=== PATIENT | male | born 1965 | race Caucasian/White ===

== ENCOUNTER → 2016-03-27 | Outpatient (CLI) | payer BC ==
[~2016-03-27] MED LIST: ALLEGRA ALLERG180 MG PO; AMOXICILLIN 8751 TAB PO; LAMICTAL 100MG100 MG PO; NIACIN1000 MG PO; NORCO 325 MG-51 TAB PO; PROAIR HFA0.09 MG/AC IH; SINGULAIR 110 MG/TAB PO; ZITHROMAX 250M250 MG PO
== END ==
LOC: BHSO 09:53
DX: F33.1 Major depressive disorder, recurrent, moderate (principal)

== ENCOUNTER → 2016-04-17 | Outpatient (CLI) | payer BC | LOC: BHSO 07:59 | DX: F33.1 Major depressive disorder, recurrent, moderate (principal) ==

== ENCOUNTER → 2016-05-11 | Outpatient (CLI) | payer BC | LOC: BHSO 09:03 | DX: F33.2 Major depressive disorder, recurrent severe without psychotic features (principal) ==

== ENCOUNTER → 2016-06-20 | Outpatient (CLI) | payer BC | LOC: BHSO 10:58 | DX: F33.1 Major depressive disorder, recurrent, moderate (principal) ==

== ENCOUNTER → 2016-10-02 | Outpatient (CLI) | payer BC | LOC: BHSO 08:59 | DX: F33.1 Major depressive disorder, recurrent, moderate (principal) ==

== ENCOUNTER → 2016-11-07 | Outpatient (CLI) | payer BC | LOC: BHSO 08:57 | DX: F41.1 Generalized anxiety disorder (principal) ==

== ENCOUNTER → 2016-12-03 | Outpatient (CLI) | payer BC | LOC: BHSO 14:59 | DX: F41.1 Generalized anxiety disorder (principal) ==

== ENCOUNTER → 2017-01-01 | Outpatient (CLI) | payer BC | LOC: BHSO 09:00 | DX: F33.0 Major depressive disorder, recurrent, mild (principal) ==

== ENCOUNTER → 2017-01-16 | Outpatient (CLI) | payer BC ==
[~2017-01-16] VITALS: Ht 177.8 cm; Wt 64.9 kg
== END ==
LOC: SUN.CLI 09:21
DX: Z43.2 Encounter for attention to ileostomy (principal); Z87.738 Personal history of other specified (corrected) congenital malformations of digestive system; Z71.89 Other specified counseling; R19.7 Diarrhea, unspecified; Z78.9 Other specified health status

== ENCOUNTER → 2017-02-18 | Outpatient (CLI) | payer BC | LOC: BHSO 08:56 | DX: F41.1 Generalized anxiety disorder (principal) ==

== ENCOUNTER → 2017-04-02 | Outpatient (CLI) | payer BC | LOC: BHSO 15:55 | DX: F33.1 Major depressive disorder, recurrent, moderate (principal) ==

== ENCOUNTER → 2017-05-16 | Outpatient (CLI) | payer BC | LOC: BHSO 08:59 | DX: F33.1 Major depressive disorder, recurrent, moderate (principal) ==

== ENCOUNTER 2017-06-13 06:42 | Emergency (ER) | payer BC ==
[~2017-06-13] VITALS: Ht 177.8 cm; Wt 68.2 kg
[2017-06-13 07:14] LABS: BASO # 0.1 (0.0-0.2); BASO % 0.4 % (0.0-2.0); EOS # 0.4 (0.0-0.7); EOS % 2.6 % (0-4.0); GRAN # 11.7 (1.4-6.5); LYMPH # 1.1 (1.2-3.4); LYMPH % 7.6 % (20.0-51.0); MEAN CELL VOLUME 90 fl (80.0-100.0); MEAN CORPUSCULAR HGB CONC 36 g/dl (33.0-37.0); MONO # 0.9 (0.1-0.6); MONO % 6.1 % (1.7-9.3); PLATELET COUNT 232 K/mm3 (130-400); REDCELL DISTRIBUTION WIDTH-CV 12.7 % (11.5-14.5)
[2017-06-13 07:15] LABS: HEMATOCRIT 54.1 % (42.0-52.0); HEMOGLOBIN 19.5 g/dl (13.5-18.0); MEAN CORPUSCULAR HEMOGLOBIN 33 pg (27.0-31.0)
[2017-06-13 07:28] LABS: ALANINE AMINOTRANSFERASE 45 U/L (21-72); ALBUMIN 5.1 gm/dL (3.5-5.0); ALKALINE PHOSPHATASE 123 U/L (50-136); ANION GAP 22 mmol/L (7-16); AST,SGOT 37 U/L (15-37); BILIRUBIN,TOTAL 1.6 mg/dL (0.0-1.0); BLOOD UREA NITROGEN 21 mg/dL (9-20); CALCIUM 10.5 mg/dL (8.4-10.2); CARBON DIOXIDE 20 mmol/L (22-30); CHLORIDE 98 mmol/L (98-107); CREATININE, serum 1.53 mg/dL (0.66-1.25); GLUCOSE 143 mg/dL (74-106); LIPASE 107 U/L (23-300); POTASSIUM 3.6 mmol/L (3.4-5.0); SODIUM 140 mmol/L (137-145); TOTAL PROTEIN 9.1 gm/dL (6.4-8.2)
[2017-06-13 07:29] LABS: C-REACTIVE PROTEIN < 0.5 mg/dL (0.0-0.9)
[2017-06-13 08:51] VITALS: TEMP 98
[2017-06-13 12:57] LABS: COLLECTION METHOD CLEAN CATCH
[2017-06-13 13:14] LABS: MUCOUS Present /lpf; PH 6 (5-8); SQUAMOUS EPITHELIAL None Seen /hpf; URINE APPEARANCE Hazy; URINE BACTERIA None Seen /hpf; URINE BILIRUBIN Negative (NEGATIVE); URINE BLOOD Negative (NEGATIVE); URINE COLOR Yellow; URINE GLUCOSE Negative (NEGATIVE); URINE KETONE Negative (NEGATIVE); URINE LEUKOCYTE ESTERASE Negative (NEGATIVE); URINE NITRATE Negative (NEGATIVE); URINE PROTEIN(semi-quant) 1+ (NEGATIVE); URINE RBC 0-2 /hpf; URINE UROBILINOGEN Negative (NEGATIVE)
[2017-06-13] MEDS ORDERED: ZOFRAN ODT4 MG PO (14:25)
[2017-06-13 16:30] VITALS: BP 121/76; PULSE 94
== END 2017-06-13 16:46 | disposition home or self-care (01) ==
LOC: COL.ER 06:42
PROVIDERS: Family Medicine
DX: E86.9 Volume depletion, unspecified (principal); R11.10 Vomiting, unspecified; R19.7 Diarrhea, unspecified
CPT/HCPCS: J2405; J7030; J7120

== ENCOUNTER → 2017-06-17 | Outpatient (CLI) | payer BC ==
[~2017-06-17] MED LIST changes: +ZOFRAN ODT4 MG PO
== END ==
LOC: BHSO 13:57
DX: F41.1 Generalized anxiety disorder (principal)

== ENCOUNTER 2017-06-26 06:22 | Inpatient (IN) | payer BC ==
[~2017-06-26] VITALS: Ht 177.8 cm; Wt 70.5 kg
[2017-06-26] VITALS (7 sets, daily range): BP systolic 93–116; BP diastolic 51–76; PULSE 78–99; TEMP 98.4–100.5
[~2017-06-26 06:22] MED LIST changes: -ALLEGRA ALLERG180 MG PO
[2017-06-26 06:49] LABS: BASO % 0.5 % (0.0-2.0); EOS # 0.1 (0.0-0.7); EOS % 0.9 % (0-4.0); GRAN # 7.3 (1.4-6.5); HEMATOCRIT 46.9 % (42.0-52.0); HEMOGLOBIN 17.2 g/dl (13.5-18.0); LYMPH # 0.4 (1.2-3.4); LYMPH % 4.8 % (20.0-51.0); MEAN CELL VOLUME 89 fl (80.0-100.0); MEAN CORPUSCULAR HEMOGLOBIN 33 pg (27.0-31.0); MEAN CORPUSCULAR HGB CONC 37 g/dl (33.0-37.0); MEAN PLATELET VOLUME 8.6 fl (7.4-10.4); MONO # 0.7 (0.1-0.6); MONO % 8.6 % (1.7-9.3); PLATELET COUNT 175 K/mm3 (130-400); REDCELL DISTRIBUTION WIDTH-CV 12.1 % (11.5-14.5)
[2017-06-26 07:02] LABS: ALBUMIN 4.4 gm/dL (3.5-5.0); C-REACTIVE PROTEIN 0.6 mg/dL (0.0-0.9); CALCIUM 9.3 mg/dL (8.4-10.2); CREATININE, serum 1.26 mg/dL (0.66-1.25); TOTAL PROTEIN 8.2 gm/dL (6.4-8.2)
[2017-06-26] MEDS ORDERED: TAGAMET HB200 MG PO (07:26)
[2017-06-26] MEDS ORDERED: ALLEGRA ALLERG180 MG PO (07:27)
[2017-06-26 08:01] LABS: COLLECTION METHOD CLEAN CATCH
[2017-06-26 08:07] LABS: PH 7 (5-8); SQUAMOUS EPITHELIAL None Seen /hpf; URINE APPEARANCE Clear; URINE BACTERIA None Seen /hpf; URINE BILIRUBIN Negative (NEGATIVE); URINE BLOOD Negative (NEGATIVE); URINE COLOR Yellow; URINE GLUCOSE Negative (NEGATIVE); URINE KETONE Negative (NEGATIVE); URINE LEUKOCYTE ESTERASE Negative (NEGATIVE); URINE NITRATE Negative (NEGATIVE); URINE PROTEIN(semi-quant) Negative (NEGATIVE); URINE RBC 0-2 /hpf; URINE UROBILINOGEN Negative (NEGATIVE)
[2017-06-27 04:36] VITALS: BP 104/74; PULSE 89; TEMP 98.5
[2017-06-27 06:48] LABS: BASO % 0.4 % (0.0-2.0); EOS % 0.8 % (0-4.0); GRAN # 3.9 (1.4-6.5); GRAN % 73.7 % (42.2-75.2); HEMATOCRIT 47.4 % (42.0-52.0); HEMOGLOBIN 17.5 g/dl (13.5-18.0); LYMPH # 0.7 (1.2-3.4); LYMPH % 13.3 % (20.0-51.0); MEAN CELL VOLUME 88 fl (80.0-100.0); MEAN CORPUSCULAR HEMOGLOBIN 33 pg (27.0-31.0); MEAN CORPUSCULAR HGB CONC 37 g/dl (33.0-37.0); MEAN PLATELET VOLUME 9.4 fl (7.4-10.4); MONO # 0.6 (0.1-0.6); MONO % 11.2 % (1.7-9.3); PLATELET COUNT 181 K/mm3 (130-400); RED BLOOD COUNT 5.36 M/mm3 (4.20-5.60); REDCELL DISTRIBUTION WIDTH-CV 12.3 % (11.5-14.5)
[2017-06-27 06:58] LABS: CALCIUM 9.3 mg/dL (8.4-10.2); CHOLESTEROL RISK RATIO 3.3; CREATININE, serum 1.1 mg/dL (0.66-1.25); MAGNESIUM 1.3 mg/dL (1.6-2.3); POTASSIUM 3.8 mmol/L (3.4-5.0)
[2017-06-27 08:12] VITALS: BP 114/74; PULSE 87; TEMP 98.7
[2017-06-27 11:17] VITALS: BP 104/77; PULSE 83; TEMP 98.5
[2017-06-27 15:17] VITALS: BP 98/68; PULSE 101; TEMP 98.7
[2017-06-27 19:43] VITALS: BP 111/83; PULSE 98; TEMP 98.1
[2017-06-27 23:48] VITALS: BP 100/73; PULSE 96; TEMP 97.9
[2017-06-28 03:42] VITALS: BP 112/83; PULSE 90; TEMP 97.9
[2017-06-28 06:38] LABS: HEMATOCRIT 50.5 % (42.0-52.0); MEAN CELL VOLUME 89 fl (80.0-100.0); MEAN CORPUSCULAR HGB CONC 36 g/dl (33.0-37.0); MEAN PLATELET VOLUME 9.6 fl (7.4-10.4); PLATELET COUNT 193 K/mm3 (130-400); RED BLOOD COUNT 5.67 M/mm3 (4.20-5.60); REDCELL DISTRIBUTION WIDTH-CV 12.1 % (11.5-14.5)
[2017-06-28 06:50] LABS: HEMOGLOBIN 18.4 g/dl (13.5-18.0); MEAN CORPUSCULAR HEMOGLOBIN 32 pg (27.0-31.0)
[2017-06-28 06:51] LABS: ALBUMIN 4.2 gm/dL (3.5-5.0); BILIRUBIN,TOTAL 1.4 mg/dL (0.0-1.0); CALCIUM 9.1 mg/dL (8.4-10.2); CREATININE, serum 1.24 mg/dL (0.66-1.25); POTASSIUM 3.4 mmol/L (3.4-5.0); TOTAL PROTEIN 8.1 gm/dL (6.4-8.2)
[2017-06-28 08:01] VITALS: BP 104/78; PULSE 103; TEMP 98.9
[2017-06-28 08:20] LABS: BAND 14 % (0-10); BASOPHIL 2 % (0-2); LYMPHOCYTE 27 % (20.0-51.0); NEUTROPHILS 42 % (42.0-75.2); PLATELET ESTIMATE NORMAL (NORMAL)
[2017-06-28 11:45] VITALS: BP 105/75; PULSE 75; TEMP 98.1
[2017-06-28 15:31] VITALS: BP 126/78; PULSE 89
[2017-06-28 20:03] VITALS: BP 115/78; PULSE 98; TEMP 98.6
[2017-06-28 23:28] VITALS: BP 124/80; PULSE 89; TEMP 98.6
[2017-06-29 01:06] LABS: FOLATE (FOLIC ACID) 15.7 ng/mL (7.0-31.4)
[2017-06-29 03:48] VITALS: BP 118/84; PULSE 85; TEMP 98.8
[2017-06-29 07:57] LABS: BASO % 0.7 % (0.0-2.0); EOS # 0.1 (0.0-0.7); GRAN # 2.9 (1.4-6.5); HEMATOCRIT 45.8 % (42.0-52.0); HEMOGLOBIN 16.5 g/dl (13.5-18.0); LYMPH # 1.3 (1.2-3.4); LYMPH % 24.2 % (20.0-51.0); MEAN CELL VOLUME 89 fl (80.0-100.0); MEAN CORPUSCULAR HEMOGLOBIN 32 pg (27.0-31.0); MEAN CORPUSCULAR HGB CONC 36 g/dl (33.0-37.0); MEAN PLATELET VOLUME 9.6 fl (7.4-10.4); MONO # 1.1 (0.1-0.6); MONO % 19.6 % (1.7-9.3); PLATELET COUNT 181 K/mm3 (130-400); RED BLOOD COUNT 5.14 M/mm3 (4.20-5.60); REDCELL DISTRIBUTION WIDTH-CV 12.1 % (11.5-14.5)
[2017-06-29 08:19] LABS: CALCIUM 8.2 mg/dL (8.4-10.2); CREATININE, serum 1.06 mg/dL (0.66-1.25); MAGNESIUM 1.9 mg/dL (1.6-2.3); POTASSIUM 3.2 mmol/L (3.4-5.0)
[2017-06-29 08:36] VITALS: BP 105/74; PULSE 85; TEMP 97.9
[2017-06-29 11:40] VITALS: BP 98/61; PULSE 79; TEMP 98.1
[2017-06-29 15:49] VITALS: BP 101/65; PULSE 85; TEMP 97.5
[2017-06-29 19:56] VITALS: BP 102/61; PULSE 83; TEMP 98.6
[2017-06-29 23:37] VITALS: BP 110/68; PULSE 83; TEMP 98.6
[2017-06-30 03:49] VITALS: BP 113/70; PULSE 75; TEMP 98.6
[2017-06-30 07:17] VITALS: BP 99/66; PULSE 73; TEMP 97.6
[2017-06-30 07:27] LABS: BASO # 0.1 (0.0-0.2); BASO % 1.3 % (0.0-2.0); EOS # 0.2 (0.0-0.7); EOS % 5.9 % (0-4.0); GRAN # 1.5 (1.4-6.5); GRAN % 39.9 % (42.2-75.2); HEMATOCRIT 37.5 % (42.0-52.0); LYMPH # 1.4 (1.2-3.4); LYMPH % 38.5 % (20.0-51.0); MEAN CELL VOLUME 90 fl (80.0-100.0); MEAN CORPUSCULAR HEMOGLOBIN 32 pg (27.0-31.0); MEAN CORPUSCULAR HGB CONC 36 g/dl (33.0-37.0); MEAN PLATELET VOLUME 9.3 fl (7.4-10.4); MONO # 0.5 (0.1-0.6); MONO % 13.9 % (1.7-9.3); PLATELET COUNT 157 K/mm3 (130-400); RED BLOOD COUNT 4.17 M/mm3 (4.20-5.60); REDCELL DISTRIBUTION WIDTH-CV 12.4 % (11.5-14.5)
[2017-06-30 07:40] LABS: HEMOGLOBIN 13.3 g/dl (13.5-18.0)
[2017-06-30 07:50] LABS: ALBUMIN 2.9 gm/dL (3.5-5.0); BILIRUBIN,TOTAL 0.8 mg/dL (0.0-1.0); CALCIUM 7.9 mg/dL (8.4-10.2); CREATININE, serum 0.84 mg/dL (0.66-1.25); POTASSIUM 3.2 mmol/L (3.4-5.0); TOTAL PROTEIN 5.6 gm/dL (6.4-8.2)
[2017-06-30 13:21] VITALS: BP 103/64; PULSE 87; TEMP 97.8
== END 2017-06-30 15:00 | disposition home or self-care (01) | DRG 392 ==
LOC: COL.ER 06:22 → MEDICAL 07:18
PROVIDERS: Emergency Medicine; Internal Medicine; Physician Assistant
DX: A08.4 Viral intestinal infection, unspecified (principal); N17.9 Acute kidney failure, unspecified; Q42.3 Congenital absence, atresia and stenosis of anus without fistula; E87.1 Hypo-osmolality and hyponatremia; E78.1 Pure hyperglyceridemia; E83.42 Hypomagnesemia; D75.89 Other specified diseases of blood and blood-forming organs; E87.6 Hypokalemia; R94.5 Abnormal results of liver function studies; Z93.2 Ileostomy status
CPT/HCPCS: 99223-AI; 99231-AI; 99232-AI; 99239; G0378; J1650; J1956; J2405; J3475; J7030; J7120

== ENCOUNTER → 2017-07-10 | Outpatient (CLI) | payer BC ==
[~2017-07-10] MED LIST changes: +ALLEGRA ALLERG180 MG PO; +TAGAMET HB200 MG PO
== END ==
LOC: BHSO 09:00
DX: F33.1 Major depressive disorder, recurrent, moderate (principal)

== ENCOUNTER → 2017-08-15 | Outpatient (CLI) | payer BC | LOC: BHSO 09:58 | DX: F33.1 Major depressive disorder, recurrent, moderate (principal) ==

== ENCOUNTER → 2017-09-26 | Outpatient (CLI) | payer BC | LOC: BHSO 15:02 | DX: F41.1 Generalized anxiety disorder (principal) ==

== ENCOUNTER → 2017-11-11 | Outpatient (CLI) | payer BC | LOC: BHSO 15:58 | DX: Z01.818 Encounter for other preprocedural examination (principal) ==

== ENCOUNTER → 2017-11-14 | Outpatient (CLI) | payer BC | LOC: BHSO 13:56 | DX: F33.1 Major depressive disorder, recurrent, moderate (principal) ==

== ENCOUNTER → 2017-12-04 | Outpatient (CLI) | payer BC | LOC: BHSO 15:58 | DX: F41.1 Generalized anxiety disorder (principal) ==

== ENCOUNTER → 2018-01-23 | Outpatient (CLI) | payer BC | LOC: BHSO 08:59 | DX: F33.1 Major depressive disorder, recurrent, moderate (principal) ==

== ENCOUNTER → 2018-03-04 | Outpatient (CLI) | payer BC | LOC: BHSO 08:56 | DX: F33.1 Major depressive disorder, recurrent, moderate (principal) ==

== ENCOUNTER → 2018-04-07 | Outpatient (CLI) | payer BC | LOC: BHSO 08:52 | DX: F33.1 Major depressive disorder, recurrent, moderate (principal) ==

== ENCOUNTER → 2018-05-08 | Outpatient (CLI) | payer BC | LOC: BHSO 08:58 | DX: F41.1 Generalized anxiety disorder (principal) ==

== ENCOUNTER → 2018-06-10 | Outpatient (CLI) | payer BC | LOC: BHSO 09:03 | DX: F41.1 Generalized anxiety disorder (principal) ==

== ENCOUNTER → 2018-08-01 | Outpatient (CLI) | payer BC | LOC: BHSO 15:01 | DX: F41.1 Generalized anxiety disorder (principal) ==

== ENCOUNTER → 2018-09-16 | Outpatient (CLI) | payer BC | LOC: BHSO 09:00 | DX: F41.1 Generalized anxiety disorder (principal) ==

== ENCOUNTER → 2018-10-30 | Outpatient (CLI) | payer BC | LOC: BHSO 08:58 | DX: F41.1 Generalized anxiety disorder (principal) ==

== ENCOUNTER → 2018-12-19 | Outpatient (CLI) | payer BC | LOC: BHSO 08:54 | DX: F41.1 Generalized anxiety disorder (principal) ==

== ENCOUNTER → 2019-02-04 | Outpatient (CLI) | payer BC | LOC: BHSO 09:00 | DX: F41.1 Generalized anxiety disorder (principal) ==

== ENCOUNTER → 2019-03-05 | Outpatient (CLI) | payer BC | LOC: COL.VAS 10:27 | DX: I65.21 Occlusion and stenosis of right carotid artery (principal); E78.00 Pure hypercholesterolemia, unspecified ==

== ENCOUNTER → 2019-03-31 | Outpatient (CLI) | payer BC | LOC: BHSO 13:05 | DX: F41.1 Generalized anxiety disorder (principal) ==

== ENCOUNTER → 2019-04-14 | Outpatient (CLI) | payer BC | LOC: BHSO 08:50 | DX: F41.1 Generalized anxiety disorder (principal) ==

== ENCOUNTER → 2019-04-28 | Outpatient (CLI) | payer BC | LOC: BHSO 08:59 | DX: F33.1 Major depressive disorder, recurrent, moderate (principal) ==

== ENCOUNTER → 2019-05-12 | Outpatient (CLI) | payer BC | LOC: BHSO 08:55 | DX: F41.1 Generalized anxiety disorder (principal) ==

== ENCOUNTER → 2019-08-21 | Outpatient (CLI) | payer BC | LOC: BHSO 09:59 | DX: F41.1 Generalized anxiety disorder (principal) ==

== ENCOUNTER → 2019-09-10 | Outpatient (CLI) | payer BC | LOC: BHSO 09:01 | DX: F41.1 Generalized anxiety disorder (principal) ==

== ENCOUNTER → 2019-10-08 | Outpatient (CLI) | payer BC | LOC: BHSO 08:06 | DX: F41.1 Generalized anxiety disorder (principal) ==

== ENCOUNTER 2022-05-16 13:30 | Observation (INO) | payer BC ==
[~2022-05-16] VITALS: Ht 177.8 cm; Wt 70.0 kg
[2022-05-16 14:29] LABS: BASO # 0.1 K/mm3 (0.0-0.2); BASO % 0.5 % (0.0-2.0); EOS # 0.1 K/mm3 (0.0-0.7); EOS % 0.6 % (0.0-4.0); GRAN # 11.3 K/mm3 (1.4-6.5); GRAN % 81.3 % (42.2-75.2); HEMATOCRIT 48.5 % (42.0-52.0); HEMOGLOBIN 17.4 g/dl (13.5-18.0); LYMPH # 1.6 K/mm3 (1.2-3.4); LYMPH % 11.1 % (20.0-51.0); MEAN CELL VOLUME 85 fl (80.0-100.0); MEAN CORPUSCULAR HEMOGLOBIN 31 pg (27-31); MEAN CORPUSCULAR HGB CONC 36 g/dl (33.0-37.0); MEAN PLATELET VOLUME 9.7 fl (7.4-10.4); MONO # 0.9 K/mm3 (0.1-0.6); MONO % 6.2 % (1.7-9.3); PLATELET COUNT 241 K/mm3 (130-400); RED BLOOD COUNT 5.71 M/mm3 (4.20-5.60); REDCELL DISTRIBUTION WIDTH-CV 12.8 % (11.5-14.5)
[2022-05-16 14:56] LABS: ALBUMIN 4.1 gm/dL (3.5-5.0); BILIRUBIN,TOTAL 1.4 mg/dL (0.2-1.2); C-REACTIVE PROTEIN 0.06 mg/dL (0.00-0.50); CALCIUM 10.2 mg/dL (8.4-10.2); CREATININE, serum 1.1 mg/dL (0.72-1.25); POTASSIUM 4.1 mmol/L (3.5-4.5); TOTAL PROTEIN 7.5 gm/dL (6.2-8.1)
[2022-05-16 16:17] LABS: COLLECTION METHOD CLEAN CATCH
[2022-05-16 16:23] LABS: MUCOUS Present (NOT PRESENT); SQUAMOUS EPITHELIAL None Seen /hpf (0-10); URINE BACTERIA None Seen /hpf (NONE SEEN); URINE RBC 0-2 /hpf (0-2)
[2022-05-16 16:24] LABS: URINE APPEARANCE Clear (CLEAR/HAZY); URINE BLOOD Negative (NEGATIVE); URINE COLOR Yellow (YELLOW); URINE GLUCOSE Negative (NEGATIVE); URINE KETONE Negative (NEGATIVE); URINE NITRATE Negative (NEGATIVE); URINE PROTEIN(semi-quant) Negative (NEGATIVE); URINE UROBILINOGEN 0.2 (NEGATIVE)
--- NOTE | 2022-05-16 19:22 | NUR ---
PT ADMITTED TO ROOM 327 PER CHAIR. PT NAUSEATED AND HAVING LEVEL 7 ABD PAIN. PT A&0X4. STARTED LR AT 80CC/HR TO RAC. PT VOMITED APPROXIMATELY 200CC TANNISH DILUTE ENISIS. SEE MAR FOR MS AND ZOFRAN GIVEN. DR MARES HERE VISITING WITH PT AT THIS TIME. CALL LIGHT INB REACH. ASKED PT TO CALL WHEN NEEDING UP.
[2022-05-16 19:26] VITALS: BP 125/83; PULSE 87; TEMP 98.1
[2022-05-16] MEDS ORDERED: TRICOR145 MG PO (21:15)
[2022-05-16] MEDS ORDERED: VITAMIND3 5000 PO (21:17)
[2022-05-16] MEDS ORDERED: FISH OIL 1000MG1 CAP PO (21:19)
[2022-05-16] MEDS ORDERED: MAGNESIUM200 MG PO (21:21)
[2022-05-16 23:20] VITALS: BP 117/66; PULSE 84; TEMP 98.5
--- NOTE | 2022-05-17 02:12 | NUR ---
PT HAVE LT LOWER QUAD ABD PAIN AND NAUSEA. A FEW DRY HEAVES. ABD SEEMS A LITTLE MORE FIRM AND DISTENDED. SEE MAR FOR ZOFRAN AND MS GIVEN. BS VERY HYPOACTIVE.
--- NOTE | 2022-05-17 02:33 | NUR ---
PT REPORTS GETTING SOME NAUSEA AND PAIN RELIEF NOW.
[2022-05-17 04:09] VITALS: BP 120/72; PULSE 81; TEMP 98.4
[2022-05-17 07:29] VITALS: BP 116/71; PULSE 82; TEMP 98
[2022-05-17 07:37] LABS: BASO % 0.6 % (0.0-2.0); EOS # 0.1 K/mm3 (0.0-0.7); EOS % 1.3 % (0.0-4.0); GRAN # 4.9 K/mm3 (1.4-6.5); GRAN % 72.4 % (42.2-75.2); HEMATOCRIT 44.2 % (42.0-52.0); HEMOGLOBIN 15.7 g/dl (13.5-18.0); LYMPH # 0.9 K/mm3 (1.2-3.4); LYMPH % 12.8 % (20.0-51.0); MEAN CELL VOLUME 86 fl (80.0-100.0); MEAN CORPUSCULAR HEMOGLOBIN 31 pg (27-31); MEAN CORPUSCULAR HGB CONC 36 g/dl (33.0-37.0); MEAN PLATELET VOLUME 9.8 fl (7.4-10.4); MONO # 0.9 K/mm3 (0.1-0.6); MONO % 12.8 % (1.7-9.3); PLATELET COUNT 199 K/mm3 (130-400); RED BLOOD COUNT 5.15 M/mm3 (4.20-5.60); REDCELL DISTRIBUTION WIDTH-CV 13.1 % (11.5-14.5)
[2022-05-17 07:55] LABS: CALCIUM 8.6 mg/dL (8.4-10.2); CREATININE, serum 1.1 mg/dL (0.72-1.25); POTASSIUM 4.1 mmol/L (3.5-4.5)
--- NOTE | 2022-05-17 10:16 | NUR ---
SW met with the patient to discuss discharge plan. The patient lives in [place] with his , Leigh (ph#[phone]). He reports independence with ADLs and does not have any DME. The patient's PCP is Dr. Adan White and he receives his medications from [facility]. The patient does not have a DPOA-HC in EMR, but he states that he does have one completed and that it designates his . The patient plans to return home with his upon discharge. No additional needs at this time. *Discharge plan: home with *
--- NOTE | 2022-05-17 11:28 | NUR ---
Initial visit: Pt was resting and content. Pt stated he has no needs right now. Supervisor Curing Room will follow up as needed.
[2022-05-17 11:38] VITALS: BP 108/68; PULSE 76; TEMP 98
[2022-05-17 16:00] VITALS: BP 122/76; PULSE 761; TEMP 98
[2022-05-17 19:28] VITALS: BP 114/73; PULSE 78; TEMP 97.8
--- NOTE | 2022-05-17 20:54 | NUR ---
SHIFT REPORT FROM RALPH CR. PATIENT IN BED ON ROOM ENTRY. ALERT AND ORIENTED. DENIES PAIN. STATES HE IS PASSING GAS AND BOWEL FROM HIS OSTOMY. IVF INFUSING. REMAINS NPO AND BOWEL REST. DENIES NEEDS.
[2022-05-17 23:33] VITALS: BP 120/81; PULSE 65; TEMP 98
[2022-05-18 03:54] VITALS: BP 95/61; PULSE 76; TEMP 97.8
[2022-05-18 06:38] LABS: HEMATOCRIT 42.6 % (42.0-52.0); HEMOGLOBIN 15.2 g/dl (13.5-18.0); MEAN CELL VOLUME 86 fl (80.0-100.0); MEAN CORPUSCULAR HEMOGLOBIN 31 pg (27-31); MEAN CORPUSCULAR HGB CONC 36 g/dl (33.0-37.0); MEAN PLATELET VOLUME 9.7 fl (7.4-10.4); PLATELET COUNT 182 K/mm3 (130-400); RED BLOOD COUNT 4.95 M/mm3 (4.20-5.60); REDCELL DISTRIBUTION WIDTH-CV 12.9 % (11.5-14.5)
[2022-05-18 07:00] LABS: CALCIUM 8.9 mg/dL (8.4-10.2); CREATININE, serum 1.1 mg/dL (0.72-1.25); POTASSIUM 3.5 mmol/L (3.5-4.5)
--- NOTE | 2022-05-18 07:09 | NUR ---
Received shift report from the night nurseRachel RN
[2022-05-18 07:11] VITALS: BP 114/58; PULSE 67; TEMP 98
--- NOTE | 2022-05-18 08:51 | NUR ---
Patient resting in bed alert and oriented. Ileostomy bag intact. Patient states he has had good output from ostomy bag and has emptied bag 5 times. Patient denies episode of n/v. IVF infusing without difficulty. ICE chips offered per NPO orders. Patient has no needs at this time.
[2022-05-18 11:24] VITALS: BP 122/78; PULSE 75; TEMP 97.8
--- NOTE | 2022-05-18 12:15 | NUR ---
Patient tolerated clear liquid this am with no issues with n/v, will advance diet to low fiber. Will continue to monitor patient's PO intake.
[2022-05-18 15:31] VITALS: BP 125/73; PULSE 72; TEMP 98.1
--- NOTE | 2022-05-18 18:09 | NUR ---
Patient discharged home at 1805 accompanied by spouse. All belongings given to patient. Patient has no concerns or needs at this time.
== END 2022-05-18 18:05 | disposition home or self-care (01) ==
LOC: COL.ER 13:30 → SURG 17:42
PROVIDERS: Nurse Practitioner Family; ADMIT Surgery
DX: K56.600 Partial intestinal obstruction, unspecified as to cause (principal); Z93.2 Ileostomy status; Z28.310 Unvaccinated for COVID-19; Z28.9 Immunization not carried out for unspecified reason
CPT/HCPCS: G0378; J2270; J2405; J3010; J7030; J7120; Q9967